=== PATIENT | female | born 1940 | race Caucasian/White ===

== ENCOUNTER 2025-08-23 16:09 | Inpatient (IN) ==
[2025-08-23 17:28] LABS: Basophils # (Auto) 0.03 K/mcL (0.00-0.30); Basophils % (Auto) 0.5 % (0.0-2.0); Eosinophils # (Auto) 0.15 K/mcL (0.00-0.70); Eosinophils % (Auto) 2.6 % (0.0-7.0); Hematocrit 40.5 % (34.1-44.9); Hemoglobin 13.2 g/dL (11.2-15.7); Lymphocytes # (Auto) 1.76 K/mcL (1.50-4.80); Lymphocytes % (Auto) 31.0 % (15.5-49.0); Mean Corpuscular HGB Conc 32.6 g/dL (31.0-36.0); Monocytes # (Auto) 0.40 K/mcL (0.10-0.90); Monocytes % (Auto) 7.0 % (1.0-12.0); Neutrophils % (Auto) 58.4 % (38.0-78.0); Platelet Count 200 K/mcL (140-440); RBC 4.30 M/mcL (3.59-5.38); WBC 5.7 K/mcL (4.5-11.0)
[2025-08-23 17:47] LABS: ALT/SGPT 16 U/L (<40); AST/SGOT 22 U/L (<32); Albumin 4.0 gm/dL (3.2-5.2); Albumin/Globulin Ratio 1.7 (1.0-2.3); Alkaline Phosphatase 52 U/L (39-117); Anion Gap 11.0 (8.0-16.0); Bilirubin,Total 0.3 mg/dL (0.1-1.0); Blood Urea Nitrogen 13 mg/dL (8-23); Calcium 9.1 mg/dL (8.6-10.4); Carbon Dioxide 25 mmol/L (22-30); Chloride 101 mmol/L (96-108); Globulin 2.3 gm/dL (2.2-3.7); Glucose 115 mg/dL (70-105); Potassium 4.0 mmol/L (3.3-5.1); Sodium 137 mmol/L (133-145)
[2025-08-23] MEDS ORDERED: NALOXONE HCL 0.4 MG/ML VIAL IV PRN (19:45)
[2025-08-23] MEDS ORDERED: MAG HYDROX/AL HYDROX/SIMETH 30 ML ORAL.SUSP PO PRN (19:45)
[2025-08-23] MEDS: 0.9 % SODIUM CHLORIDE 10 ML SYRINGE IV SCH (20:25)
[2025-08-23] MEDS: LACTATED RINGERS 1,000 ML IV SCH (20:30)
[2025-08-23] MEDS: HEPARIN 5,000 UNIT/ML VIAL SQ SCH (20:47)
[2025-08-23] MEDS: PANTOPRAZOLE 40 MG TABLET PO SCH (20:48)
[2025-08-23] MEDS: LOSARTAN 25 MG TABLET PO SCH (20:48)
[2025-08-23] MEDS: MELATONIN 3 MG TABLET PO PRN (20:48)
[2025-08-23] MEDS: DOCUSATE SODIUM 100 MG CAPSULE PO SCH (20:48)
[2025-08-23 20:55] LABS: Bilirubin,Urine NEGATIVE (Negative); Color,Urine LT. YELLOW; Glucose,Urine (UA) NEGATIVE (Negative); Ketones,Urine NEGATIVE (Negative); Leukocyte Esterase,Urine NEGATIVE /uL (Negative); PH,Urine 7.0 (5.0-9.0); Protein,Urine NEGATIVE (Negative); Specific Gravity,Urine 1.010 (1.000-1.035); Urobilinogen,Urine 0.2 mg/dL
[2025-08-23] MEDS: SENNOSIDES 1 TABLET PO SCH (21:33)
[2025-08-24] MEDS: ONDANSETRON 4 MG/2 ML VIAL IV PRN (00:28)
[2025-08-24 06:17] LABS: Basophils # (Auto) 0.04 K/mcL (0.00-0.30); Basophils % (Auto) 0.4 % (0.0-2.0); Eosinophils # (Auto) 0.08 K/mcL (0.00-0.70); Eosinophils % (Auto) 0.8 % (0.0-7.0); Hematocrit 40.1 % (34.1-44.9); Hemoglobin 13.2 g/dL (11.2-15.7); Lymphocytes # (Auto) 0.96 K/mcL (1.50-4.80); Lymphocytes % (Auto) 10.0 % (15.5-49.0); Mean Corpuscular HGB Conc 32.9 g/dL (31.0-36.0); Monocytes # (Auto) 0.45 K/mcL (0.10-0.90); Monocytes % (Auto) 4.7 % (1.0-12.0); Neutrophils % (Auto) 83.9 % (38.0-78.0); Platelet Count 194 K/mcL (140-440); RBC 4.28 M/mcL (3.59-5.38); WBC 9.6 K/mcL (4.5-11.0)
[2025-08-24 06:30] LABS: Anion Gap 9.0 (8.0-16.0); Blood Urea Nitrogen 11 mg/dL (8-23); Calcium 8.9 mg/dL (8.6-10.4); Carbon Dioxide 25 mmol/L (22-30); Chloride 101 mmol/L (96-108); Glucose 120 mg/dL (70-105); Potassium 4.0 mmol/L (3.3-5.1); Sodium 135 mmol/L (133-145)
[2025-08-24] MEDS ORDERED: LIDOCAINE 2% PF 5 ML VIAL ONE (08:21)
[2025-08-24] MEDS ORDERED: ONDANSETRON 4 MG/2 ML VIAL ONE (08:21)
[2025-08-24] MEDS ORDERED: PROPOFOL 200 MG/20 ML VIAL IV ONE (08:21)
[2025-08-24] MEDS ORDERED: DEXAMETHASONE 10 MG/ML VIAL ONE (08:21)
[2025-08-24] MEDS: ceFAZolin 2 GM in DEXTROSE 5% IN WATER 50 ML IV SCH (08:32)
[2025-08-24] MEDS ORDERED: PHENYLephrine 1 MG/10 ML SYRINGE (ANEST) ONE (08:41)
[2025-08-24] MEDS ORDERED: ePHEDrine 50 MG/5 ML SYRINGE (ANEST) IV ONE (09:04)
[2025-08-24] MEDS ORDERED: fentaNYL 100 MCG/2 ML VIAL IV PRN (09:19)
[2025-08-24] MEDS ORDERED: LACTATED RINGERS 250 ML IV PRN (09:19)
[2025-08-24] MEDS ORDERED: IPRATROPIUM/ALBUTEROL 3 ML AMPUL.NEB NEB PRN (09:19)
[2025-08-24] MEDS ORDERED: ONDANSETRON 4 MG/2 ML VIAL IV PRN (09:19)
[2025-08-24] MEDS ORDERED: NALOXONE HCL 0.4 MG/ML VIAL IV PRN (09:19)
[2025-08-24] MEDS ORDERED: diphenhydrAMINE 50 MG/ML VIAL IV PRN (09:19)
[2025-08-24] MEDS ORDERED: MEPERIDINE 25 MG/ML VIAL IV PRN (09:19)
[2025-08-24] MEDS ORDERED: BENZOCAINE/MENTHOL 1 LOZENGE PO PRN (09:34)
[2025-08-24] MEDS: ACETAMINOPHEN 1,000 MG/100 ML BAG IV ONE (09:39)
[2025-08-24] MEDS: LACTATED RINGERS 1,000 ML IV SCH (10:27)
[2025-08-24] MEDS: CYCLOBENZAPRINE 10 MG TABLET PO PRN (10:48)
[2025-08-24] MEDS: LIDOCAINE 4% TOP PATCH TOPICAL SCH (11:17)
[2025-08-24] MEDS: ACETAMINOPHEN 1,000 MG/100 ML BAG IV PRN (17:23)
[2025-08-24] MEDS: ASPIRIN 325 MG ENTERIC COATED TABLET PO SCH (20:20)
[2025-08-24] MEDS: POLYETHYLENE GLYCOL 3350 17 GM PACKET PO SCH (20:20)
[2025-08-25 06:27] LABS: Basophils # (Auto) 0.01 K/mcL (0.00-0.30); Basophils % (Auto) 0.1 % (0.0-2.0); Eosinophils # (Auto) 0.15 K/mcL (0.00-0.70); Eosinophils % (Auto) 1.6 % (0.0-7.0); Hematocrit 36.1 % (34.1-44.9); Hemoglobin 11.9 g/dL (11.2-15.7); Lymphocytes # (Auto) 1.28 K/mcL (1.50-4.80); Lymphocytes % (Auto) 14.0 % (15.5-49.0); Mean Corpuscular HGB Conc 33.0 g/dL (31.0-36.0); Monocytes # (Auto) 0.80 K/mcL (0.10-0.90); Monocytes % (Auto) 8.8 % (1.0-12.0); Neutrophils % (Auto) 75.3 % (38.0-78.0); Platelet Count 154 K/mcL (140-440); RBC 3.86 M/mcL (3.59-5.38); WBC 9.1 K/mcL (4.5-11.0)
[2025-08-25 06:49] LABS: Anion Gap 7.0 (8.0-16.0); Blood Urea Nitrogen 15 mg/dL (8-23); Calcium 8.5 mg/dL (8.6-10.4); Carbon Dioxide 28 mmol/L (22-30); Chloride 98 mmol/L (96-108); Glucose 93 mg/dL (70-105); Potassium 4.1 mmol/L (3.3-5.1); Sodium 133 mmol/L (133-145)
[2025-08-26 06:03] LABS: Basophils # (Auto) 0.04 K/mcL (0.00-0.30); Basophils % (Auto) 0.5 % (0.0-2.0); Eosinophils # (Auto) 0.54 K/mcL (0.00-0.70); Eosinophils % (Auto) 6.9 % (0.0-7.0); Hematocrit 37.2 % (34.1-44.9); Hemoglobin 12.0 g/dL (11.2-15.7); Lymphocytes # (Auto) 1.64 K/mcL (1.50-4.80); Lymphocytes % (Auto) 20.8 % (15.5-49.0); Mean Corpuscular HGB Conc 32.3 g/dL (31.0-36.0); Monocytes # (Auto) 0.76 K/mcL (0.10-0.90); Monocytes % (Auto) 9.6 % (1.0-12.0); Neutrophils % (Auto) 61.8 % (38.0-78.0); Platelet Count 164 K/mcL (140-440); RBC 3.97 M/mcL (3.59-5.38); WBC 7.9 K/mcL (4.5-11.0)
[2025-08-26 06:20] LABS: Anion Gap 5.0 (8.0-16.0); Blood Urea Nitrogen 16 mg/dL (8-23); Calcium 8.2 mg/dL (8.6-10.4); Carbon Dioxide 28 mmol/L (22-30); Chloride 99 mmol/L (96-108); Glucose 85 mg/dL (70-105); Potassium 4.4 mmol/L (3.3-5.1); Sodium 132 mmol/L (133-145)
[2025-08-26 18:50] LABS: Anion Gap 7.0 (8.0-16.0); Blood Urea Nitrogen 20 mg/dL (8-23); Calcium 8.7 mg/dL (8.6-10.4); Carbon Dioxide 28 mmol/L (22-30); Chloride 93 mmol/L (96-108); Glucose 98 mg/dL (70-105); Potassium 4.7 mmol/L (3.3-5.1); Sodium 128 mmol/L (133-145)
[2025-08-26] MEDS: 0.9 % SODIUM CHLORIDE 250 ML IV ONE (22:51)
[2025-08-26] MEDS: 0.9 % SODIUM CHLORIDE 1,000 ML IV SCH (23:34)
[2025-08-27] MEDS: SODIUM CHLORIDE 1 GM TABLET PO ONE ×2 (00:06→03:06)
[2025-08-27 01:14] LABS: Sodium 130 mmol/L (133-145)
[2025-08-27] MEDS: ACETAMINOPHEN 325 MG TABLET PO PRN (05:30)
[2025-08-27 06:47] LABS: Anion Gap 4.0 (8.0-16.0); Blood Urea Nitrogen 17 mg/dL (8-23); Calcium 8.7 mg/dL (8.6-10.4); Carbon Dioxide 31 mmol/L (22-30); Chloride 100 mmol/L (96-108); Glucose 103 mg/dL (70-105); Potassium 5.1 mmol/L (3.3-5.1); Sodium 135 mmol/L (133-145)
== END 2025-08-27 11:25 | DRG 481 ==
LOC: ED 16:09 → MEDSUR 19:44
PROVIDERS: ADMIT Student in an Organized Health Care Education/Training Program; ATTEND Student in an Organized Health Care Education/Training Program